=== PATIENT | female | born 1975 | race Caucasian/White ===

== ENCOUNTER → 2017-01-16 | Outpatient (CLI) | payer BC ==
[2017-01-16 10:04] LABS: Basophils # (auto) 0 uL; Basophils % (auto) 0.3 % (0.0-2.0); Eosinophils # (auto) 0.3 uL; Eosinophils % (auto) 4.2 % (0.0-7.0); Hematocrit 39.5 % (36.0-46.0); Lymphocytes # (auto) 1.8 uL; Lymphocytes % (auto) 23.7 % (10.0-50.0); Mean Corpuscular Hemoglobin 27.7 pg (28.0-32.0); Mean Corpuscular Volume 84.1 fL (80.0-100.0); Mean Platelet Volume 9.2 fL (7.4-10.4); Monocytes # (auto) 0.6 uL; Monocytes % (auto) 7.2 % (0.0-12.0); Neutrophils % (auto) 64.6 % (37.0-80.0); Platelet Count (auto) 263 10^3/uL (140-450); Red Cell Distribution Width 14.1 % (11.6-16.0); White Blood Cell 7.7 10^3/uL (4.4-10.8)
[2017-01-16 10:12] LABS: Urine Bilirubin Negative (Negative); Urine Blood TRACE /uL (Negative); Urine Color Yellow (Yellow); Urine Glucose Normal (Normal); Urine Ketone Negative (Negative); Urine Mucus FEW (None Seen); Urine Nitrite Negative (Negative); Urine RBC <1 /hpf (0 - 4); Urine Squamous Epithelial Cell FEW /hpf (<5); Urine Urobilinogen Normal (Negative)
[2017-01-16 11:17] LABS: Albumin 3.5 g/dL (3.4-5.0); BUN/Creatinine Ratio 12.7; Bilirubin, Total 0.5 mg/dL (0.2-1.0); Total Protein 7.5 g/dL (6.4-8.2)
== END | disposition home or self-care (01) ==
LOC: LAB 09:23
DX: Z68.37 Body mass index [BMI] 37.0-37.9, adult (principal); N92.1 Excessive and frequent menstruation with irregular cycle
CPT/HCPCS: 36415; 80053; 80061; 81001; 82670; 83001; 83002; 84146; 84443; 85025

== ENCOUNTER 2017-02-27 07:07 | Day surgery (SDC) | payer BC ==
[2017-02-26 09:59] LABS: Urine Bilirubin Negative (Negative); Urine Blood 2+ /uL (Negative); Urine Color Yellow (Yellow); Urine Glucose Normal (Normal); Urine Ketone Negative (Negative); Urine Nitrite Negative (Negative); Urine Urobilinogen Normal (Negative)
[2017-02-26 10:04] LABS: Basophils # (auto) 0 uL; Basophils % (auto) 0.5 % (0.0-2.0); Eosinophils # (auto) 0.3 uL; Eosinophils % (auto) 6.3 % (0.0-7.0); Hematocrit 35.5 % (36.0-46.0); Hemoglobin 11.9 g/dL (12.2-16.2); Lymphocytes # (auto) 1.3 uL; Lymphocytes % (auto) 27.4 % (10.0-50.0); Mean Corpuscular Hemoglobin 27.9 pg (28.0-32.0); Mean Corpuscular Hgb Conc. 33.4 g/dL (32.0-36.0); Mean Corpuscular Volume 83.6 fL (80.0-100.0); Mean Platelet Volume 9.7 fL (7.4-10.4); Monocytes # (auto) 0.4 uL; Neutrophils # (auto) 2.7 uL; Neutrophils % (auto) 56.8 % (37.0-80.0); Platelet Count (auto) 182 10^3/uL (140-450); White Blood Cell 4.7 10^3/uL (4.4-10.8)
[2017-02-26 10:21] LABS: Albumin 3.9 g/dL (3.4-5.0); BUN/Creatinine Ratio 16.5; Calcium 8.5 mg/dL (8.5-10.1); Potassium 3.8 mmol/L (3.5-5.1)
[2017-02-26 10:23] LABS: INR 0.98 (0.9-1.15); Partial Thromboplastin Time 25.6 sec (22.64-33.71); Prothrombin Time 10.6 sec (9.37-12.3)
[2017-02-26 10:24] LABS: Bilirubin, Total 0.5 mg/dL (0.2-1.0); Total Protein 6.5 g/dL (6.4-8.2)
[~2017-02-27] VITALS: Ht 170.2 cm; Wt 112.0 kg
[2017-02-27] MEDS ORDERED: ceFAZolin 1GM/50ML D5W 50 ML IV ONE (07:26)
[2017-02-27] MEDS ORDERED: PROPOFOL 10 MG/ML 20 ML IV ONE (08:51)
[2017-02-27] MEDS ORDERED: fentaNYL CITRATE 100 MCG/2 ML VL ONE (08:51)
[2017-02-27] MEDS ORDERED: MIDAZOLAM HCL 1MG/1ML-2 ML VIAL ONE (08:51)
[2017-02-27] MEDS ORDERED: LACTATED RINGER'S 1,000 ML IV SCH (09:56)
[2017-02-27] MEDS ORDERED: ONDANSETRON HCL 4 MG/2 ML VIAL IV PRN (10:00)
[2017-02-27] MEDS ORDERED: ONDANSETRON HCL 4 MG/2 ML VIAL IV ONE (10:15)
[2017-02-27] MEDS ORDERED: hydrALAZINE HCL 20 MG/ML VL IV PRN (10:15)
[2017-02-27] MEDS ORDERED: HYDROmorphone HCL 2 MG/ML VL IV PRN (10:15)
[2017-02-27] MEDS ORDERED: ePHEDrine SULFATE 50 MG/ML AMP IV PRN (10:15)
[2017-02-27 11:00] VITALS: BP 133/78
== END 2017-02-27 11:00 | disposition home or self-care (01) ==
LOC: SUR 07:07
PROVIDERS: ATTEND Specialist
DX: N92.1 Excessive and frequent menstruation with irregular cycle (principal); N94.6 Dysmenorrhea, unspecified; Z98.51 Tubal ligation status; Z90.710 Acquired absence of both cervix and uterus; D25.0 Submucous leiomyoma of uterus; E66.9 Obesity, unspecified
CPT/HCPCS: 36415; 58558; 80053; 81003; 84702; 85025; 85610; 85730; 86850; 86900; 86901; 88305; J0690; J2250; J2704; J3010

== ENCOUNTER → 2018-02-12 | Outpatient (CLI) | payer BC ==
[2018-02-12 10:14] LABS: Basophils # (auto) 0 uL; Basophils % (auto) 0.7 % (0.0-2.0); Eosinophils # (auto) 0.2 uL; Eosinophils % (auto) 2.8 % (0.0-7.0); Hematocrit 40.4 % (36.0-46.0); Hemoglobin 13.5 g/dL (12.2-16.2); Lymphocytes # (auto) 1.9 uL; Lymphocytes % (auto) 28.2 % (10.0-50.0); Mean Corpuscular Hgb Conc. 33.4 g/dL (32.0-36.0); Mean Corpuscular Volume 86.8 fL (80.0-100.0); Monocytes # (auto) 0.6 uL; Monocytes % (auto) 8.3 % (0.0-12.0); Platelet Count (auto) 209 10^3/uL (140-450); Red Blood Cells 4.66 10^6/uL (4.0-5.20); Red Cell Distribution Width 13.3 % (11.8-14.3); White Blood Cell 6.7 10^3/uL (4.4-10.8)
[2018-02-12 10:15] LABS: Urine Bacteria NONE SEEN /hpf (None Seen); Urine Blood Negative /uL (Negative); Urine Mucus FEW (None Seen); Urine Specific Gravity 1.025 (1.001-1.035); Urine WBC 2 /hpf (0 - 5)
[2018-02-12 10:52] LABS: Albumin 3.9 g/dL (3.4-5.0); BUN/Creatinine Ratio 15.9; Bilirubin, Total 0.5 mg/dL (0.2-1.0); Calcium 8.8 mg/dL (8.5-10.1); Potassium 4.2 mmol/L (3.5-5.1); Total Protein 7.5 g/dL (6.4-8.2)
== END | disposition home or self-care (01) ==
LOC: LAB 08:30
PROVIDERS: ATTEND Physician Assistant
DX: N92.1 Excessive and frequent menstruation with irregular cycle (principal); J30.2 Other seasonal allergic rhinitis; R00.2 Palpitations; Z83.3 Family history of diabetes mellitus; Z82.49 Family history of ischemic heart disease and other diseases of the circulatory system
CPT/HCPCS: 36415; 80053; 80061; 81001; 83036; 85025

== ENCOUNTER → 2018-04-16 | Outpatient (CLI) | payer BC ==
[2018-04-16 09:21] LABS: Free T4 (Free Thyroxine) 1.08 ng/dL (0.89-1.76); T3 Total 1.19 ng/mL (0.60-1.81)
== END | disposition home or self-care (01) ==
LOC: LAB 08:28
PROVIDERS: ATTEND Physician Assistant
DX: R63.5 Abnormal weight gain (principal)
CPT/HCPCS: 36415; 84439; 84443; 84480

== ENCOUNTER → 2019-04-12 | Outpatient (CLI) | payer BC ==
[2019-04-12 08:04] LABS: Basophils # (auto) 0 uL; Basophils % (auto) 0.7 % (0.0-2.0); Eosinophils # (auto) 0.3 uL; Hematocrit 39.6 % (36.0-46.0); Hemoglobin 13.5 g/dL (12.2-16.2); Lymphocytes # (auto) 1.7 uL; Lymphocytes % (auto) 27.8 % (10.0-50.0); Mean Corpuscular Hemoglobin 29.4 pg (28.0-32.0); Mean Corpuscular Hgb Conc. 34.2 g/dL (32.0-36.0); Mean Corpuscular Volume 85.8 fL (80.0-100.0); Monocytes # (auto) 0.5 uL; Monocytes % (auto) 8.1 % (0.0-12.0); Neutrophils # (auto) 3.7 uL; Neutrophils % (auto) 59.4 % (37.0-80.0); Platelet Count (auto) 193 10^3/uL (140-450); Red Blood Cells 4.61 10^6/uL (4.0-5.20); Red Cell Distribution Width 12.9 % (11.8-14.3); White Blood Cell 6.3 10^3/uL (4.4-10.8)
[2019-04-12 08:55] LABS: Albumin 3.8 g/dL (3.4-5.0); Potassium 3.4 mmol/L (3.5-5.1)
[2019-04-12 09:04] LABS: BUN/Creatinine Ratio 18.9; Bilirubin, Total 0.5 mg/dL (0.2-1.0); Calcium 9.1 mg/dL (8.5-10.1)
== END | disposition home or self-care (01) ==
LOC: LAB 07:04
PROVIDERS: ATTEND Physician Assistant
DX: Z00.00 Encounter for general adult medical examination without abnormal findings (principal); N92.1 Excessive and frequent menstruation with irregular cycle; Z82.49 Family history of ischemic heart disease and other diseases of the circulatory system; Z83.3 Family history of diabetes mellitus
CPT/HCPCS: 36415; 80053; 80061; 83036; 85025

== ENCOUNTER → 2020-06-01 | Outpatient (CLI) | payer OTHER | END | disposition home or self-care (01) | LOC: LAB 10:20 | PROVIDERS: ATTEND Nurse Practitioner Family | DX: Z03.818 Encounter for observation for suspected exposure to other biological agents ruled out (principal) ==

== ENCOUNTER → 2020-07-10 | Outpatient (CLI) | payer BC | END | disposition home or self-care (01) | LOC: LAB 09:26 | PROVIDERS: ATTEND Physician Assistant | DX: U07.1 COVID-19 (principal) | CPT/HCPCS: 87086; C9803; U0003 ==

== ENCOUNTER → 2020-08-16 | Outpatient (CLI) | payer BC ==
[2020-08-16 07:51] LABS: Basophils # (auto) 0 10 ^3/uL (0-0.2); Basophils % (auto) 0.8 % (0.0-2.0); Eosinophils # (auto) 0.2 10 ^3/uL (0-0.8); Eosinophils % (auto) 2.8 % (0.0-7.0); Hematocrit 40.6 % (36.0-46.0); Hemoglobin 13.8 g/dL (12.2-16.2); Lymphocytes # (auto) 1.7 10 ^3/uL (0.4-5.4); Lymphocytes % (auto) 28.2 % (10.0-50.0); Mean Corpuscular Hemoglobin 28.8 pg (28.0-32.0); Mean Corpuscular Hgb Conc. 34.1 g/dL (32.0-36.0); Mean Corpuscular Volume 84.4 fL (80.0-100.0); Monocytes # (auto) 0.5 10 ^3/uL (0-1.3); Monocytes % (auto) 8.4 % (0.0-12.0); Neutrophils # (auto) 3.6 10 ^3/uL (1.6-8.6); Neutrophils % (auto) 59.8 % (37.0-80.0); Platelet Count (auto) 232 10^3/uL (140-450); Red Blood Cells 4.81 10^6/uL (4.0-5.20)
[2020-08-16 08:21] LABS: Potassium 3.8 mmol/L (3.5-5.1)
[2020-08-16 08:29] LABS: Albumin 3.8 g/dL (3.4-5.0); BUN/Creatinine Ratio 17.1; Bilirubin, Total 0.6 mg/dL (0.2-1.0); Calcium 9.4 mg/dL (8.5-10.1); Total Protein 7.8 g/dL (6.4-8.2)
== END | disposition home or self-care (01) ==
LOC: LAB 07:27
PROVIDERS: ATTEND Physician Assistant
DX: E66.3 Overweight (principal); N92.1 Excessive and frequent menstruation with irregular cycle; R00.2 Palpitations; Z82.49 Family history of ischemic heart disease and other diseases of the circulatory system
CPT/HCPCS: 36415; 80053; 80061; 83036; 84443; 85025

== ENCOUNTER → 2022-01-09 | Outpatient (CLI) | payer BC ==
[2022-01-09 08:46] LABS: Basophils # (auto) 0.1 10 ^3/uL (0-0.2); Basophils % (auto) 1.3 % (0.0-2.0); Eosinophils # (auto) 0.2 10 ^3/uL (0-0.8); Eosinophils % (auto) 2.4 % (0.0-7.0); Hematocrit 41.2 % (36.0-46.0); Hemoglobin 14.4 g/dL (12.2-16.2); Lymphocytes # (auto) 2.5 10 ^3/uL (0.4-5.4); Mean Corpuscular Hemoglobin 29.3 pg (28.0-32.0); Mean Corpuscular Volume 83.8 fL (80.0-100.0); Monocytes # (auto) 0.6 10 ^3/uL (0-1.3); Monocytes % (auto) 6.6 % (0.0-12.0); Neutrophils # (auto) 5.6 10 ^3/uL (1.6-8.6); Neutrophils % (auto) 61.7 % (37.0-80.0); Nucleated Red Blood Cells % 0.2 %; Red Blood Cells 4.92 10^6/uL (4.0-5.20); Red Cell Distribution Width 13.6 % (11.8-14.3); White Blood Cell 9.1 10^3/uL (4.4-10.8)
[2022-01-09 11:04] LABS: Albumin 3.7 g/dL (3.4-5.0)
[2022-01-09 11:07] LABS: Free T4 (Free Thyroxine) 1.08 ng/dL (0.89-1.76)
[2022-01-09 11:12] LABS: BUN/Creatinine Ratio 17.8; Bilirubin, Total 0.6 mg/dL (0.2-1.0); Calcium 9.6 mg/dL (8.5-10.1); Total Protein 7.8 g/dL (6.4-8.2)
[2022-01-09 11:27] LABS: Potassium 4.6 mmol/L (3.5-5.1)
== END | disposition home or self-care (01) ==
LOC: LAB 08:23
PROVIDERS: ATTEND Nurse Practitioner Family
DX: E78.00 Pure hypercholesterolemia, unspecified (principal); E66.9 Obesity, unspecified
CPT/HCPCS: 36415; 80053; 80061; 82672; 83525; 84144; 84439; 84443; 85025

== ENCOUNTER → 2023-02-11 | Outpatient (CLI) | payer BC ==
[2023-02-11 07:28] LABS: Basophils # (auto) 0 10 ^3/uL (0-0.2); Basophils % (auto) 0.7 % (0.0-2.0); Eosinophils # (auto) 0.3 10 ^3/uL (0-0.8); Eosinophils % (auto) 4.1 % (0.0-7.0); Hematocrit 38.1 % (36.0-46.0); Hemoglobin 13.1 g/dL (12.2-16.2); Lymphocytes # (auto) 1.9 10 ^3/uL (0.4-5.4); Lymphocytes % (auto) 29.5 % (10.0-50.0); Mean Corpuscular Hemoglobin 29.1 pg (28.0-32.0); Mean Corpuscular Hgb Conc. 34.4 g/dL (32.0-36.0); Mean Corpuscular Volume 84.6 fL (80.0-100.0); Monocytes # (auto) 0.5 10 ^3/uL (0-1.3); Monocytes % (auto) 8.1 % (0.0-12.0); Neutrophils # (auto) 3.7 10 ^3/uL (1.6-8.6); Neutrophils % (auto) 57.6 % (37.0-80.0); Nucleated Red Blood Cells % 0.1 %; Red Cell Distribution Width 13.3 % (11.8-14.3); White Blood Cell 6.5 10^3/uL (4.4-10.8)
[2023-02-11 07:58] LABS: Albumin 3.5 g/dL (3.4-5.0); Calcium 9.2 mg/dL (8.5-10.1); Potassium 3.7 mmol/L (3.5-5.1)
[2023-02-11 08:01] LABS: BUN/Creatinine Ratio 14.8 (10.0-20.0); Bilirubin, Total 0.6 mg/dL (0.2-1.0); Total Protein 6.9 g/dL (6.4-8.2)
== END | disposition home or self-care (01) ==
LOC: LAB 06:59
PROVIDERS: ATTEND Nurse Practitioner Family
DX: R00.2 Palpitations (principal); E66.3 Overweight
CPT/HCPCS: 36415; 80053; 80061; 82306; 84439; 84443; 85025

== ENCOUNTER → 2024-07-14 | Outpatient (CLI) | payer BC ==
[2024-07-14 08:49] LABS: Basophils # (auto) 0.1 10 ^3/uL (0-0.2); Basophils % (auto) 0.8 % (0.0-2.0); Eosinophils # (auto) 0.1 10 ^3/uL (0-0.8); Eosinophils % (auto) 1.9 % (0.0-7.0); Hematocrit 38.5 % (36.0-46.0); Hemoglobin 13.4 g/dL (12.2-16.2); Lymphocytes % (auto) 32.1 % (10.0-50.0); Mean Corpuscular Hemoglobin 29.9 pg (28.0-32.0); Mean Corpuscular Hgb Conc. 34.8 g/dL (32.0-36.0); Mean Corpuscular Volume 85.7 fL (80.0-100.0); Monocytes # (auto) 0.5 10 ^3/uL (0-1.3); Monocytes % (auto) 8.4 % (0.0-12.0); Neutrophils # (auto) 3.5 10 ^3/uL (1.6-8.6); Neutrophils % (auto) 56.8 % (37.0-80.0); Nucleated Red Blood Cells % 0.1 %; Platelet Count (auto) 200 10^3/uL (140-450); Red Blood Cells 4.49 10^6/uL (4.0-5.20); Red Cell Distribution Width 13.4 % (11.8-14.3); White Blood Cell 6.1 10^3/uL (4.4-10.8)
[2024-07-14 09:57] LABS: Alanine Aminotransferase 16 U/L (7-40); Albumin 4.2 g/dL (3.2-4.8); Alkaline Phosphatase 52 U/L (46-116); Aspartate Aminotransferase 13 U/L (13-40); BUN/Creatinine Ratio 11.2 (10.0-20.0); Bilirubin, Total 0.8 mg/dL (0.2-1.0); Blood Urea Nitrogen 10 mg/dL (9-23); Calcium 9.6 mg/dL (8.7-10.4); Chloride 107 mmol/L (98-107); Cholesterol 164 mg/dL (< 200); Glucose 88 mg/dL (74-106); HDL Cholesterol 58 mg/dL (40-59); LDL Cholesterol 97 mg/dL (< 100); Sodium 141 mmol/L (136-145); Total Protein 6.8 g/dL (5.7-8.2); Triglycerides 39 mg/dL (< 150)
[2024-07-14 10:16] LABS: Anion Gap 8 (5-15); Carbon Dioxide 26 mmol/L (20-31)
== END | disposition home or self-care (01) ==
LOC: LAB 08:09
PROVIDERS: ATTEND Nurse Practitioner Family
DX: R00.2 Palpitations (principal); E66.9 Obesity, unspecified; Z00.00 Encounter for general adult medical examination without abnormal findings
CPT/HCPCS: 36415; 80053; 80061; 82306; 84443; 85025

== ENCOUNTER → 2024-09-21 | Outpatient (CLI) | payer BC | END | disposition home or self-care (01) | LOC: LAB 06:38 | PROVIDERS: ATTEND Nurse Practitioner Family | DX: N39.0 Urinary tract infection, site not specified (principal) | CPT/HCPCS: 87086 ==

== ENCOUNTER → 2024-12-19 | Outpatient (CLI) | payer BC | END | disposition home or self-care (01) | LOC: LAB 08:23 | PROVIDERS: ATTEND Obstetrics & Gynecology | DX: N93.9 Abnormal uterine and vaginal bleeding, unspecified (principal) ==

== ENCOUNTER 2025-01-06 07:42 | Inpatient (IN) | payer BC ==
[2025-01-04 11:56] LABS: Basophils # (auto) 0 10 ^3/uL (0-0.2); Basophils % (auto) 0.5 % (0.0-2.0); Eosinophils # (auto) 0.1 10 ^3/uL (0-0.8); Eosinophils % (auto) 0.9 % (0.0-7.0); Hematocrit 35.6 % (36.0-46.0); Hemoglobin 12.3 g/dL (12.2-16.2); Lymphocytes # (auto) 1.6 10 ^3/uL (0.4-5.4); Lymphocytes % (auto) 22.5 % (10.0-50.0); Mean Corpuscular Hgb Conc. 34.7 g/dL (32.0-36.0); Mean Corpuscular Volume 86.5 fL (80.0-100.0); Monocytes # (auto) 0.5 10 ^3/uL (0-1.3); Monocytes % (auto) 7.2 % (0.0-12.0); Neutrophils # (auto) 4.9 10 ^3/uL (1.6-8.6); Neutrophils % (auto) 68.9 % (37.0-80.0); Platelet Count (auto) 184 10^3/uL (140-450); Red Blood Cells 4.11 10^6/uL (4.0-5.20); Red Cell Distribution Width 13.2 % (11.8-14.3); White Blood Cell 7.1 10^3/uL (4.4-10.8)
[2025-01-04 12:04] LABS: Urine Bacteria MOD /hpf (None Seen); Urine Blood Negative /uL (Negative); Urine Clarity Turbid (Clear); Urine Color Yellow (Yellow); Urine Mucus FEW (None Seen); Urine Protein, UAD TRACE (Negative); Urine Specific Gravity 1.029 (1.001-1.035); Urine Squamous Epithelial Cell MOD /hpf (<5); Urine Urobilinogen Normal (Negative); Urine WBC 4 /HPF (0-5)
[2025-01-04 12:12] LABS: INR 1.05 (0.9-1.15); Partial Thromboplastin Time 26.8 SEC (24.5-34.5); Prothrombin Time 11.1 sec (9.3-11.8)
[2025-01-04 12:25] LABS: Alanine Aminotransferase 16 U/L (7-40); Alkaline Phosphatase 52 U/L (46-116); Anion Gap 5 (5-15); Calcium 9.6 mg/dL (8.7-10.4); Carbon Dioxide 27 mmol/L (20-31); Potassium 3.9 mmol/L (3.5-5.1); Sodium 140 mmol/L (136-145)
[2025-01-04 12:26] LABS: Albumin 4.3 g/dL (3.2-4.8); BUN/Creatinine Ratio 14.8 (10.0-20.0); Bilirubin, Total 0.7 mg/dL (0.2-1.0); Blood Urea Nitrogen 13 mg/dL (9-23)
[2025-01-04 12:31] LABS: Aspartate Aminotransferase 12 U/L (13-40); Chloride 108 mmol/L (98-107); Glucose 108 mg/dL (74-106)
[~2025-01-06] VITALS: Ht 170.2 cm; Wt 85.1 kg
[~2025-01-06 07:42] MED LIST: MAGN400T40 PO; TRAZ-227 PO
[2025-01-06] MEDS ORDERED: PROPOFOL 10 MG/ML 20 ML IV ONE (10:06)
[2025-01-06] MEDS ORDERED: LIDOCAINE HCL 100 MG/5ML (2%) SYRG INJ IV ONE (10:06)
[2025-01-06] MEDS ORDERED: ROCURONIUM 10MG/ML 10ML VIAL IV ONE ×2 (10:07→12:00)
[2025-01-06] MEDS ORDERED: ESMOLOL HCL 10 ML IV ONE (10:07)
[2025-01-06] MEDS ORDERED: hydrALAZINE HCL 20 MG/ML VL IV PRN ×2 (10:15→14:15)
[2025-01-06] MEDS ORDERED: ePHEDrine SULFATE 50 MG/ML AMP IV PRN ×2 (10:15→14:15)
[2025-01-06] MEDS ORDERED: fentaNYL CITRATE 100 MCG/2 ML VL IV PRN ×2 (10:15→14:15)
[2025-01-06] MEDS ORDERED: DexAMETHasone SOD PHOS 10MG/1ML VIAL INJ ONE ×3 (10:31→13:41)
[2025-01-06] MEDS ORDERED: KETAMINE 50mg/ML 10ml Vial 10 ML ONE (10:31)
[2025-01-06] MEDS ORDERED: ONDANSETRON HCL 4 MG/2 ML VIAL ONE ×2 (10:31→12:08)
[2025-01-06] MEDS: VASOPRESSIN 20 UNIT/ML ONE (10:55)
[2025-01-06] MEDS ORDERED: fentaNYL CITRATE 100 MCG/2 ML VL ONE (11:20)
[2025-01-06] MEDS ORDERED: SUGAMMADEX 200mg/2ml Vial (100MG/ML) IV ONE (13:36)
[2025-01-06] MEDS: LIDOCAINE W/ EPINEPHRINE 1% 20ML VIAL ONE (13:45)
[2025-01-06 14:03] VITALS: PULSE 85; RESP 16; O2SAT 100
--- NOTE | 2025-01-06 14:11 | DVHPN2 ---
Visit Coding OBGYN Date of Service: Jan 06, 2025 Billing Provider: ANANDA JAMES DO CHARGE LOADER Common Visit Codes: [id number] INP/OBS CARE (HIGH) CHARGE LOADER Procedure Codes: [id number]. SURG: W/VAG HYST (LAVH, Bilateral Salpingectomy ,Cystoscopy), 37904-YPX.SURG:W/REM ADNEXAL STRUCT ANANDA JAMES DO Jan 06, 2025 14:11
--- NOTE | 2025-01-06 14:14 | DVHHP2 ---
DUMPSTER OPERATOR CC & HPI Date Date of Admission: Jan 06, 2025 Allergies: Coded Allergies: NO KNOWN ALLERGIES (Unverified , 08/17/23) Home Meds Reported Medications Magnesium Oxide (MAGNESIUM OXIDE) 400 Mg Tab, 1 TAB PO HS, #30 TAB 5 Refills 01/04/25 Trazodone Hcl (Trazodone Hcl) 50 Mg Tab, 50 MG PO HS, MG 01/04/25 Current Medications Current Medications Medications (Trade) Dose Ordered Sig/Carlene Route PRN Reason Start Time Stop Time Status Last Admin Hydralazine HCl (Apresoline Injection) 2.5 mg Q20M PRN IV SBP>150 01/06/25 10:15 01/06/25 11:16 DC Ephedrine Sulfate (ePHEDrine SULFATE) 10 mg Q10M PRN IV SBP LESS THAN 90 01/06/25 10:15 01/06/25 10:56 DC Fentanyl Citrate 25 mcg Q5M PRN IV BREAKTHROUGH PAIN (7-10) 01/06/25 10:15 01/06/25 10:26 DC Hydromorphone HCl (Dilaudid Injection) 0.25 mg Q10M PRN IV MODERATE PAIN (4-6 PAIN SCALE) 01/06/25 10:15 01/06/25 10:46 DC Physical Exam Physical Exam Vitals: Vital Signs Date Time Temp Pulse Resp B/P (MAP) Pulse Ox O2 Delivery O2 Flow Rate FiO2 01/06/25 10:19 Mechanical Ventilator 01/06/25 08:02 97.3 78 100 113/66 (82) 20 97.3 Assessment and Plan Plan Assessment and Plan: No changes to H&P dictated 01/02/25 Visit Coding OBGYN Date of Service: Jan 06, 2025 Billing Provider: ANANDA JAMES DO CAREGIVER ASSISTED LIVING Common Visit Codes: [id number] OBS CARE (HIGH) ANANDA JAMES DO Jan 06, 2025 14:14
[2025-01-06] MEDS ORDERED: HYDROmorphone HCL 2 MG/ML VL/or syr IV PRN (14:15)
[2025-01-06] MEDS ORDERED: ONDANSETRON HCL 4 MG/2 ML VIAL IV PRN (14:15)
[2025-01-06] MEDS: ACETAMINOPHEN IV 1000 MG/100ML (10MG/ML) IV ONE (14:27)
--- NOTE | 2025-01-06 14:46 | DVHOP ---
DATE OF SURGERY: 01/06/2025 PREOPERATIVE DIAGNOSES: * Menorrhagia. * Pelvic pain. * Failed prior endometrial ablation. FINAL DIAGNOSES: * Menorrhagia. * Pelvic pain. * Failed prior endometrial ablation. * Endometriosis. * Possible adenomyosis. SURGEON: Jonathan Cherry DO SIGNAL MAINTAINER: Ankita hernández. PROCEDURES PERFORMED: * Laparoscopic-assisted total vaginal hysterectomy with bilateral salpingectomy. * Diagnostic cystoscopy. DESCRIPTION OF FINDINGS: An enlarged globular uterus 12-week size. No myomas noted. Normal bilateral fallopian tubes and ovaries. The ovaries were conserved per patient request. There was infiltrating endometriosis in the posterior cul-de-sac obliterating partially the cul-de-sac with endometriotic nodules of the uterosacral ligaments as well. The appendix, gallbladder, other organs were visualized and appeared normal. TECHNICAL PROCEDURE: After informed consent was obtained, the patient was taken to the operating room where she underwent smooth induction with general anesthesia. She was placed in dorsal lithotomy position in Zac stirrups. The vagina, perineum, abdomen were thoroughly prepped and the patient sterilely draped in usual fashion. A pelvic exam was then performed under anesthesia with the above-noted findings. A transurethral hamm catheter was placed. A weighted speculum was placed into the patient's vagina. The anterior and posterior lips of the cervix were grasped with single-tooth tenacula. The vaginal mucosa was injected with a dilute solution of vasopressin until blanching of the vaginal mucosa was noted. The cervix was incised circumferentially sharply with the scalpel. The cervicovesical fascia was dissected sharply and bluntly and sharp entry into the anterior cul-de-sac was performed in atraumatic fashion. A right-angle retractor was placed into the anterior cul-de-sac. Entry into the posterior cul-de-sac, however, could not be achieved despite two attempts. There was nodularity and obliteration of the cul-de-sac. There was tunneling in between the vaginal epithelium and the peritoneum. Therefore, decision was made to convert to laparoscopy. At this point, a BrainBotare uterine manipulator with a colpotimizer cup was placed transcervically. The balloon inflated. Attention was then placed to the abdomen where a 5 mm incision was made at the base of the umbilicus. The Veress needle was introduced in usual fashion. Intraperitoneal placement was confirmed with the hanging water drop test. Carbon dioxide gas was infused and pneumoperitoneum was obtained. Next, three 5 mm Optiview trocars were placed under direct visualization. A 5 mm trocar was placed at the umbilicus. Following this, a 5 mm trocar was placed to the left of midline and a 5 mm trocar was placed suprapubically. Next, the posterior vagina was inspected and there was endometriosis of the cul-de-sac discovered, as described above. The hysterectomy proceeded by dividing the round ligaments bilaterally with LigaSure. Next, bilateral uteroovarian ligaments were divided with LigaSure with good hemostasis noted. The anterior and posterior reflections of the broad ligament were dissected with the LigaSure device, obtaining good hemostasis. The uterine arteries were skeletonized bilaterally, totally desiccated and transected with the LigaSure device. The ureters were identified and they were inferior to the planes of dissection. Next, the uterosacral ligaments were taken with the LigaSure device bilaterally. The adhesions of in the posterior cul-de-sac were sharply and bluntly lysed creating a proper plane for dissection. The posterior vaginal cuff was identified via the posterior cup of the VCare manipulator. Using a monopolar hook, an incision was made in the posterior cul-de-sac and this incision was carried circumferentially. Next, we proceeded vaginally again. The weighted speculum was placed into the patient's vagina. A right-angle retractor was placed into the anterior cul-de-sac. The cervix was grasped with single-tooth tenacula. The uterine fundus was then inverted and the attachments of the Mackenrodt's ligaments were clamped, transected, and suture ligated bilaterally. The uterus was delivered. At this point, it was noted that there was tunneling between the posterior vaginal epithelium and the peritoneum. This was sewn using 2-0 Vicryl with good hemostasis obtained. Next, the vagina was closed in vertical fashion using #1 Vicryl in continuing running locking fashion with two sutures meeting in the midline. The vagina was attached to the ipsilateral cardinal and uterosacral ligaments. Hemostasis was confirmed. Next, we proceeded again to perform a diagnostic laparoscopy. All vascular pedicles were inspected under low pressure and there was no bleeding noted. The left and right fallopian tubes were found. They were grasped with a Nixon clamp and dissected across the mesosalpinx bilaterally. Both fallopian tubes were removed. They were placed in a 5 mm Endo Catch bag and removed through the suprapubic port in the bag. Next, the abdomen and pelvis was thoroughly irrigated as described above. Hemostasis was confirmed. I put FloSeal over the vaginal cuff for added hemostasis. An intraoperative consult with Dr. Diaz from general surgery was obtained to inspect the rectum. There was no evidence on physical exam or on laparoscopy of any injury to the rectum or rectosigmoid colon. He performed a pressure test. There were no bubbles noted. The rectum appeared intact. At this point, all instrumentation was removed from the patient's abdomen. Before this, the carbon dioxide gas was removed and the pneumoperitoneum relieved. All instruments were removed under direct visualization. I then proceeded to perform a diagnostic cystoscopy after removing the Hamm catheter. A 70-degree cystoscope was used. Normal saline was used as a distention media. Bilateral ureteral orifices were noted with ureteral jets noted bilaterally. The trigone and dome of the bladder was inspected and appeared within normal limits. The cystoscope was removed. A clean Hamm catheter was reintroduced. Next, a vaginal Kerlix pack was placed soaked in Premarin vaginal cream. The abdominal skin incisions were closed with 3-0 Monocryl in subcuticular fashion. A thin layer of Dermabond placed. Lidocaine 1% with epinephrine was injected across three incisions, approximately 20 mL were used. At this point, the patient was taken out of lithotomy position. She was awakened and taken to recovery room in stable condition. INTRAOPERATIVE COMPLICATIONS: None. ESTIMATED BLOOD LOSS: 250 mL. POSTOPERATIVE CONDITION: Stable. SPECIMENS: Uterus and bilateral fallopian tubes. DO ANTONIO Chowdhury/LOI TID: [id number] RECEIPT: [id number] [facility] CENTERGagan
[2025-01-06] MEDS: HYDROmorphone HCL 2 MG/ML VL/or syr IV PRN ×2 (14:59→18:11)
[2025-01-06] MEDS: ONDANSETRON HCL 4 MG/2 ML VIAL IV ONE (15:11)
[2025-01-06 16:02] VITALS: BP 102/56; PULSE 90; RESP 17; TEMP 97.5; O2SAT 98
[2025-01-06 16:22] VITALS: PULSE 90; RESP 17; O2SAT 98
[2025-01-06 16:59] LABS: Basophils # (auto) 0 10 ^3/uL (0-0.2); Basophils % (auto) 0.1 % (0.0-2.0); Eosinophils # (auto) 0 10 ^3/uL (0-0.8); Hematocrit 33.4 % (36.0-46.0); Hemoglobin 11.5 g/dL (12.2-16.2); Lymphocytes # (auto) 0.4 10 ^3/uL (0.4-5.4); Mean Corpuscular Hemoglobin 29.7 pg (28.0-32.0); Mean Corpuscular Hgb Conc. 34.5 g/dL (32.0-36.0); Mean Corpuscular Volume 86.2 fL (80.0-100.0); Monocytes # (auto) 0.3 10 ^3/uL (0-1.3); Neutrophils # (auto) 13.8 10 ^3/uL (1.6-8.6); Neutrophils % (auto) 94.9 % (37.0-80.0); Platelet Count (auto) 157 10^3/uL (140-450); Red Blood Cells 3.87 10^6/uL (4.0-5.20); Red Cell Distribution Width 12.9 % (11.8-14.3); White Blood Cell 14.5 10^3/uL (4.4-10.8)
[2025-01-06 17:00] VITALS: BP 102/56; PULSE 90; RESP 17; TEMP 97.5; O2SAT 98
[2025-01-06 20:00] VITALS: PULSE 94; RESP 16; O2SAT 98
[2025-01-06 20:02] LABS: Basophils # (auto) 0 10 ^3/uL (0-0.2); Eosinophils # (auto) 0 10 ^3/uL (0-0.8); Hematocrit 32.7 % (36.0-46.0); Hemoglobin 11.4 g/dL (12.2-16.2); Lymphocytes # (auto) 0.5 10 ^3/uL (0.4-5.4); Mean Corpuscular Hgb Conc. 34.8 g/dL (32.0-36.0); Mean Corpuscular Volume 86.1 fL (80.0-100.0); Monocytes # (auto) 0.4 10 ^3/uL (0-1.3); Monocytes % (auto) 2.3 % (0.0-12.0); Neutrophils # (auto) 14.6 10 ^3/uL (1.6-8.6); Neutrophils % (auto) 94.7 % (37.0-80.0); Platelet Count (auto) 163 10^3/uL (140-450); Red Cell Distribution Width 13.3 % (11.8-14.3); White Blood Cell 15.5 10^3/uL (4.4-10.8)
[2025-01-06] MEDS: ceFAZolin 1GM/50ML 50 ML IV ONE (20:42)
[2025-01-06 21:00] VITALS: BP 103/57; PULSE 94; RESP 16; TEMP 98.1; O2SAT 98
[2025-01-07] VITALS (7 sets, daily range): BP systolic 95–112; BP diastolic 53–62; PULSE 82–92; RESP 16–20; TEMP 97.4–98.7; O2SAT 96–99
[2025-01-07] MEDS: IBUPROFEN 800 MG TAB PO PRN (00:29)
[2025-01-07] MEDS: LACTATED RINGER'S 1,000 ML IV SCH ×2 (06:00→11:26)
[2025-01-07 06:16] LABS: Basophils # (auto) 0 10 ^3/uL (0-0.2); Eosinophils # (auto) 0 10 ^3/uL (0-0.8); Hematocrit 28.5 % (36.0-46.0); Lymphocytes # (auto) 1.4 10 ^3/uL (0.4-5.4); Lymphocytes % (auto) 6.9 % (10.0-50.0); Mean Corpuscular Hemoglobin 30.4 pg (28.0-32.0); Mean Corpuscular Hgb Conc. 35.2 g/dL (32.0-36.0); Mean Corpuscular Volume 86.3 fL (80.0-100.0); Monocytes # (auto) 1.9 10 ^3/uL (0-1.3); Monocytes % (auto) 9.4 % (0.0-12.0); Neutrophils # (auto) 16.6 10 ^3/uL (1.6-8.6); Neutrophils % (auto) 83.7 % (37.0-80.0); Platelet Count (auto) 159 10^3/uL (140-450); Red Cell Distribution Width 13.4 % (11.8-14.3); White Blood Cell 19.9 10^3/uL (4.4-10.8)
[2025-01-07 06:36] LABS: Alanine Aminotransferase 10 U/L (7-40); Albumin 3.3 g/dL (3.2-4.8); Alkaline Phosphatase 42 U/L (46-116); Anion Gap 6 (5-15); Aspartate Aminotransferase 11 U/L (13-40); BUN/Creatinine Ratio 11.4 (10.0-20.0); Bilirubin, Total 0.5 mg/dL (0.2-1.0); Blood Urea Nitrogen 8 mg/dL (9-23); Calcium 9.2 mg/dL (8.7-10.4); Carbon Dioxide 26 mmol/L (20-31); Chloride 109 mmol/L (98-107); Glucose 97 mg/dL (74-106); Sodium 141 mmol/L (136-145); Total Protein 5.5 g/dL (5.7-8.2)
[2025-01-07] MEDS: ROPIVACAINE 0.5% (5MG/ML) 20ML AMPULE IJ ONE (07:44)
[2025-01-07] MEDS: METOCLOPRAMIDE HCL 5MG/ml INJ 2ml VIAL IV ONE ×2 (07:44→07:45)
[2025-01-07] MEDS: BUPIVACAINE 0.25% INJ 50ML VIAL ONE (07:44)
[2025-01-07] MEDS: ceFAZolin 2 GM/D5W100ml 100 ML IV ONE (07:44)
[2025-01-07] MEDS: CONJ ESTROGENS 0.625MG/GM VAG CRM 30GM PV ONE (07:44)
[2025-01-07] MEDS: ACETAMINOPHEN IV 100 ML IV ONE (07:44)
[2025-01-07] MEDS: METHYLENE BLUE 0.5% 5MG/ML 10ml AMP IV ONE (07:44)
[2025-01-07] MEDS: ONDANSETRON HCL 4 MG/2 ML VIAL IV ONE (07:45)
--- NOTE | 2025-01-07 08:18 | DVHPN2 ---
Subjective Progress Notes Subjective POD# 1 s/p LAVH + BS, Cystoscopy for pelvic pain, and menorrhagia S: Pain is moderate. Controlled w/ meds. Denies any fever/chills. no N/V. Patient is hungry. Objective PHYSICAL EXAM Physical Exam: Alert, NAD CV RRR Pulm CTAB ABD Soft, NT, Non distended Ext No cyanosis or edema, neg lennox sign vagina: PACKING REMOVED BY ME, no bleeding noted. Vital Signs and I&O Vital Signs Date Time Temp Pulse Resp B/P (MAP) Pulse Ox O2 Delivery O2 Flow Rate FiO2 01/07/25 05:00 98.1 82 20 104/54 (71) 96 98.1 01/06/25 20:00 Room Air* 0 21 Intake and Output 01/07/25 06:59 Intake Total 1450 ml Output Total 0 ml Balance 1450 ml Intake Oral 800 ml IV Total 650 ml Output Urine Total 0 ml Lab results Laboratory Tests Test 01/04/25 11:36 01/06/25 16:30 01/06/25 19:40 01/07/25 05:34 Range/Units White Blood Count 7.1 14.5 #H 15.5 H 19.9 #H 4.4-10.8 10^3/uL Red Blood Count 4.11 3.87 L 3.80 L 3.30 L 4.0-5.20 10^6/uL Hemoglobin 12.3 11.5 L 11.4 L 10.0 L 12.2-16.2 g/dL Hematocrit 35.6 L 33.4 L 32.7 L 28.5 #L 36.0-46.0 % Mean Corpuscular Volume 86.5 86.2 86.1 86.3 80.0-100.0 fL Mean Corpuscular Hemoglobin 30.0 29.7 30.0 30.4 28.0-32.0 pg Mean Corpuscular Hemoglobin Concent 34.7 34.5 34.8 35.2 32.0-36.0 g/dL Red Cell Distribution Width 13.2 12.9 13.3 13.4 11.8-14.3 % Platelet Count 184 157 163 159 140-450 10^3/uL Mean Platelet Volume 8.6 8.7 8.7 9.1 6.9-10.8 fL Neutrophils (%) (Auto) 68.9 94.9 H 94.7 H 83.7 H 37.0-80.0 % Lymphocytes (%) (Auto) 22.5 3.0 L 3.0 L 6.9 L 10.0-50.0 % Monocytes (%) (Auto) 7.2 2.0 2.3 9.4 0.0-12.0 % Eosinophils (%) (Auto) 0.9 0.0 0.0 0.0 0.0-7.0 % Basophils (%) (Auto) 0.5 0.1 0.0 0.0 0.0-2.0 % Neutrophils # (Auto) 4.9 13.8 H 14.6 H 16.6 H 1.6-8.6 10 ^3/uL Lymphocytes # (Auto) 1.6 0.4 0.5 1.4 0.4-5.4 10 ^3/uL Monocytes # (Auto) 0.5 0.3 0.4 1.9 H 0-1.3 10 ^3/uL Eosinophils # (Auto) 0.1 0 0 0 0-0.8 10 ^3/uL Basophils # (Auto) 0 0 0 0 0-0.2 10 ^3/uL Nucleated Red Blood Cells 0.0 0.0 0.0 0.0 % Prothrombin Time 11.1 9.3-11.8 sec Prothrombin Time INR 1.05 0.9-1.15 Activated Partial Thromboplast Time 26.8 24.5-34.5 SEC Urine Color Yellow Yellow Urine Clarity Turbid H Clear Urine pH 6.0 5.0-9.0 Urine Specific [place] 1.029 1.001-1.035 Urine Protein Trace H Negative Urine Ketones 1+ H Negative Urine Blood Negative Negative /uL Urine Nitrite Negative Negative Urine Bilirubin Negative Negative Urine Urobilinogen Normal Negative mg/dL Urine Leukocyte Esterase 2+ Negative /uL Urine RBC 2 0 - 4 /hpf Urine Microscopic WBC 4 0-5 /HPF Urine Squamous Epithelial Cells Mod <5 /hpf Urine Bacteria Mod H None Seen /hpf Urine Mucus Few None Seen Urine Glucose Normal Normal mg/dL Urine Test Negative Negative Sodium Level 140 141 136-145 mmol/L Potassium Level 3.9 4.0 3.5-5.1 mmol/L Chloride Level 108 H 109 H 98-107 mmol/L Carbon Dioxide Level 27 26 20-31 mmol/L Anion Gap 5 6 5-15 Blood Urea Nitrogen 13 8 L 9-23 mg/dL Creatinine 0.88 0.70 0.550-1.02 mg/dL Glomerular Filtration Rate Calc 82 107 >90 mL/min BUN/Creatinine Ratio 14.8 11.4 10.0-20.0 Serum Glucose 108 H 97 74-106 mg/dL Calcium Level 9.6 9.2 8.7-10.4 mg/dL Total Bilirubin 0.7 0.5 0.2-1.0 mg/dL Aspartate Amino Transferase (AST) 12 L 11 L 13-40 U/L Alanine Aminotransferase (ALT) 16 10 7-40 U/L Alkaline Phosphatase 52 42 L 46-116 U/L Total Protein 7.0 5.5 L 5.7-8.2 g/dL Albumin 4.3 3.3 3.2-4.8 g/dL Beta HCG, Quantitative 1.1 L 1.5-4.2 mIU/mL Assessment and Plan ASSESSMENT AND PLAN Assessment and Plan POD#1 s/p LAVH doing well Plan: Continue supportive care advance diet to regular Ambulate QID My orders: Orders - ANANDA JAMES DO Admit (01/06/25 14:03) To Pacu For Recovery (01/06/25 14:03) Lactated Ringer's (01/06/25 14:15) Ondansetron Hcl (Zofran) (01/06/25 14:15) Hydromorphone Injection (Dilaudid Inject (01/06/25 14:15) Sequential Compression Device (01/06/25 14:03) Oxygen By Nasal Cannula (01/06/25 14:03) D/C Beltran (01/06/25 14:03) Incentive Spirometry (01/06/25 14:03) Ibuprofen Tablet (Motrin Tablet) (01/06/25 14:15) Clear Liq Diet (01/06/25 Dinner) Abdominal Binder (01/06/25 14:03) Remove All Anal Packing (01/07/25 04:00) * Hospitalist Consult (01/06/25 ) Plan discussed with: Patient Visit Coding OBGYN Date of Service: Jan 07, 2025 Billing Provider: ANANDA JAMES DO SIGHT MOUNTER Common Visit Codes: [id number] INP/OBS CARE(HIGH) ANANDA JAMES DO Jan 07, 2025 08:18
[2025-01-07] MEDS ORDERED: HYDROcodone-ACET 7.5/325MG TAB PO PRN (08:30)
[2025-01-07] MEDS: SODIUM CHLORIDE 0.9% 500 ML IV ONE (08:45)
--- NOTE | 2025-01-07 09:19 | DVHINCON2 ---
Date Seen: Jan 07, 2025 Referring Physician ANANDA JAMES DO Reason for Consultation Medical And Pain Management History of Present Illness A 49-year-old female patient; with past medical history of menorrhagia and pelvic pain; who was admitted after laparoscopic assisted vaginal hysterectomy (LAVH), bilateral salpingectomy (BS), and cystoscopy on January 06, 2025 for pain management and treatment of complicated UTI. Past Medical History Past medical history as documented in history of present illness. Past Surgical History None Family History: Patient reports no known family medical history. Social History No alcohol/illicit drug/tobacco use Allergies: Coded Allergies: NO KNOWN ALLERGIES (Unverified , 08/17/23) Home Meds Active Scripts Hydrocodone-Acetaminophen (Hydrocodone Bitartrate/AC 5-325 mg) 1 Tab Tab, 1 TAB PO Q6HPRN PRN, #20 TAB Prov:ANANDA JAMES DO 01/07/25 Ibuprofen Micronized (Ibuprofen) 800 Mg Tab, 800 MG PO Q8HP PRN, #30 TAB Prov:ANANDA JAMES DO 01/07/25 Reported Medications Magnesium Oxide (MAGNESIUM OXIDE) 400 Mg Tab, 1 TAB PO HS, #30 TAB 5 Refills 01/04/25 Trazodone Hcl (Trazodone Hcl) 50 Mg Tab, 50 MG PO HS, MG 01/04/25 Current Medications Current Medications Medications (Trade) Dose Ordered Sig/Carlene Route PRN Reason Start Time Stop Time Status Last Admin Hydralazine HCl (Apresoline Injection) 2.5 mg Q20M PRN IV SBP>150 01/06/25 10:15 01/06/25 11:16 DC Ephedrine Sulfate (ePHEDrine SULFATE) 10 mg Q10M PRN IV SBP LESS THAN 90 01/06/25 10:15 01/06/25 10:56 DC Fentanyl Citrate 25 mcg Q5M PRN IV BREAKTHROUGH PAIN (7-10) 01/06/25 10:15 01/06/25 10:26 DC Hydromorphone HCl (Dilaudid Injection) 0.25 mg Q10M PRN IV MODERATE PAIN (4-6 PAIN SCALE) 01/06/25 10:15 01/06/25 10:46 DC 01/06/25 14:59 Lactated Ringer's 1,000 ml @ 75 mls/hr [id number] IV 01/06/25 14:15 01/07/25 08:45 DC 01/07/25 06:00 Ondansetron HCl (Zofran) 4 mg Q4HP PRN IV NAUSEA / VOMITING 01/06/25 14:15 Hydromorphone HCl (Dilaudid Injection) 1 mg Q2HP PRN IV SEVERE PAIN (7-10 PAIN SCALE) 01/06/25 14:15 01/07/25 04:29 Ibuprofen (Motrin Tablet) 800 mg Q8HP PRN PO MILD PAIN (1-3 PAIN SCALE) 01/06/25 14:15 01/07/25 00:29 Hydralazine HCl (Apresoline Injection) 5 mg Q10M PRN IV SBP>160 01/06/25 14:15 01/06/25 15:06 DC Ephedrine Sulfate (ePHEDrine SULFATE) 10 mg Q10M PRN IV SBP LESS THAN 90 01/06/25 14:15 01/06/25 14:56 DC Fentanyl Citrate 25 mcg Q5M PRN IV BREAKTHROUGH PAIN (7-10) 01/06/25 14:15 01/06/25 14:32 DC Hydromorphone HCl (Dilaudid Injection) 0.25 mg Q10M PRN IV MODERATE PAIN (4-6 PAIN SCALE) 01/06/25 14:15 01/06/25 14:46 DC Acetaminophen/ Hydrocodone Bitart ([place] 7.5/325MG Tab) 1 tab Q6HP PRN PO MODERATE PAIN (4-6 PAIN SCALE) 01/07/25 08:30 Lactated Ringer's 1,000 ml @ 125 mls/hr Q8H IV 01/07/25 11:00 Ceftriaxone Sodium 50 ml @ 100 mls/hr DAILY@09 IV 01/07/25 09:00 Review of Systems As documented in history of present illness Vital Signs Vital Signs Date Time Temp Pulse Resp B/P (MAP) Pulse Ox O2 Delivery O2 Flow Rate FiO2 01/07/25 08:40 98.1 89 16 95/53 (67) 99 98.1 01/06/25 20:00 Room Air* 0 21 Physical Exam General: Alert, oriented, not in distress HEENT: Atraumatic Respiratory: Good air entry bilateral with no wheezing/crackles Cardiovascular: RRR, normal S1 and S2, no murmurs; no edema; normal pulses Abdomen: Mild suprapubic tenderness; hyperactive bowel sounds; soft; Beltran's catheter in place Neurological: No neurological deficits Skin: Tattoos Labs/Diagnostic Data Labs Test 01/07/25 05:34 01/04/25 11:36 Range/Units White Blood Count 19.9 #H 4.4-10.8 10^3/uL Red Blood Count 3.30 L 4.0-5.20 10^6/uL Hemoglobin 10.0 L 12.2-16.2 g/dL Hematocrit 28.5 #L 36.0-46.0 % Mean Corpuscular Volume 86.3 80.0-100.0 fL Mean Corpuscular Hemoglobin 30.4 28.0-32.0 pg Mean Corpuscular Hemoglobin Concent 35.2 32.0-36.0 g/dL Red Cell Distribution Width 13.4 11.8-14.3 % Platelet Count 159 140-450 10^3/uL Mean Platelet Volume 9.1 6.9-10.8 fL Neutrophils (%) (Auto) 83.7 H 37.0-80.0 % Lymphocytes (%) (Auto) 6.9 L 10.0-50.0 % Monocytes (%) (Auto) 9.4 0.0-12.0 % Eosinophils (%) (Auto) 0.0 0.0-7.0 % Basophils (%) (Auto) 0.0 0.0-2.0 % Neutrophils # (Auto) 16.6 H 1.6-8.6 10 ^3/uL Lymphocytes # (Auto) 1.4 0.4-5.4 10 ^3/uL Monocytes # (Auto) 1.9 H 0-1.3 10 ^3/uL Eosinophils # (Auto) 0 0-0.8 10 ^3/uL Basophils # (Auto) 0 0-0.2 10 ^3/uL Nucleated Red Blood Cells 0.0 % Sodium Level 141 136-145 mmol/L Potassium Level 4.0 3.5-5.1 mmol/L Chloride Level 109 H 98-107 mmol/L Carbon Dioxide Level 26 20-31 mmol/L Anion Gap 6 5-15 Blood Urea Nitrogen 8 L 9-23 mg/dL Creatinine 0.70 0.550-1.02 mg/dL Glomerular Filtration Rate Calc 107 >90 mL/min BUN/Creatinine Ratio 11.4 10.0-20.0 Serum Glucose 97 74-106 mg/dL Calcium Level 9.2 8.7-10.4 mg/dL Total Bilirubin 0.5 0.2-1.0 mg/dL Aspartate Amino Transferase (AST) 11 L 13-40 U/L Alanine Aminotransferase (ALT) 10 7-40 U/L Alkaline Phosphatase 42 L 46-116 U/L Total Protein 5.5 L 5.7-8.2 g/dL Albumin 3.3 3.2-4.8 g/dL Prothrombin Time 11.1 9.3-11.8 sec Prothrombin Time INR 1.05 0.9-1.15 Activated Partial Thromboplast Time 26.8 24.5-34.5 SEC Urine Color Yellow Yellow Urine Clarity Turbid H Clear Urine pH 6.0 5.0-9.0 Urine Specific [place] 1.029 1.001-1.035 Urine Protein Trace H Negative Urine Ketones 1+ H Negative Urine Blood Negative Negative /uL Urine Nitrite Negative Negative Urine Bilirubin Negative Negative Urine Urobilinogen Normal Negative mg/dL Urine Leukocyte Esterase 2+ Negative /uL Urine RBC 2 0 - 4 /hpf Urine Microscopic WBC 4 0-5 /HPF Urine Squamous Epithelial Cells Mod <5 /hpf Urine Bacteria Mod H None Seen /hpf Urine Mucus Few None Seen Urine Glucose Normal Normal mg/dL Urine Test Negative Negative Beta HCG, Quantitative 1.1 L 1.5-4.2 mIU/mL Assessment A 49-year-old female patient; with past medical history of menorrhagia and pelvic pain; who was admitted after laparoscopic assisted vaginal hysterectomy (LAVH), bilateral salpingectomy (BS), and cystoscopy on January 06, 2025 for pain management and treatment of complicated UTI. #Fluid-responsive septic shock with leukocytosis and hypotension due to complicated UTI; receiving IV boluses; started on IV antibiotics; urine cultures sent; continue close monitoring #EVELIN in the setting of septic shock; most likely vasomotor nephropathy; receiving IV fluids; avoid nephrotoxic agents; continue close monitoring #Menorrhagia and pelvic pain s/p LAVH, BS, and cystoscopy on January 06, 2025; continue pain management as indicated; started on simethicone for building up of of gas; gynecology is following; continue close monitoring #Acute blood loss anemia; continue monitoring CBC; continue close monitoring #Obesity; counseled on the importance of adopting healthy lifestyle with diet and exercise in order to lose weight; continue monitoring Goals of care discussed with the patient for 20 minutes; full code 55 minutes of critical care time Late Entry. This medical document was created using an electronic medical record system with computerized dictation system. Although this document has been carefully reviewed, there might still be some phonetic and typographical errors. These areas are purely typographical due to imperfections of the software programs, and do not reflect any compromise in the patient's medical care. Plan discussed with: Patient, Other (Nurse) Date of Service: Jan 07, 2025 Billing Provider: SARAH KELLER MD Common Visit Codes: [id number] CARE 30-74 MIN (55 minutes) Secondary Visit Codes: [id number] CARE PLAN 30 MINUTES (20 minutes) Consultation Codes: [id number] CONSULT <80MIN SARAH KELLER MD Jan 07, 2025 09:19
[2025-01-07] MEDS: cefTRIAXone 1GM/50ML D5W 50 ML IV SCH (10:42)
[2025-01-07] MEDS: SIMETHICONE 80 MG CHEWABLE TABLET PO ONE (10:45)
[2025-01-07] MEDS: SIMETHICONE 80 MG CHEWABLE TABLET PO SCH (13:20)
[2025-01-07] MEDS ORDERED: HYDR-4902 PO (15:34)
[2025-01-07] MEDS ORDERED: IBUP-1455 PO (15:34)
[2025-01-08 00:42] LABS: Urine Bacteria FEW /hpf (None Seen); Urine Blood 3+ /uL (Negative); Urine Clarity Turbid (Clear); Urine Color Light-Orange (Yellow); Urine Hyaline Cast FEW /lpf (0 - 2); Urine Mucus FEW (None Seen); Urine Protein, UAD 1+ (Negative); Urine Squamous Epithelial Cell FEW /hpf (<5); Urine Urobilinogen Normal (Negative); Urine WBC 41 /HPF (0-5)
[2025-01-08 01:00] VITALS: BP 125/65; PULSE 92; RESP 19; TEMP 98.4; O2SAT 94
[2025-01-08 05:00] VITALS: BP 114/63; PULSE 91; RESP 19; TEMP 98; O2SAT 94
[2025-01-08 05:58] LABS: Basophils # (auto) 0 10 ^3/uL (0-0.2); Basophils % (auto) 0.2 % (0.0-2.0); Eosinophils # (auto) 0 10 ^3/uL (0-0.8); Eosinophils % (auto) 0.3 % (0.0-7.0); Hematocrit 26.8 % (36.0-46.0); Hemoglobin 9.2 g/dL (12.2-16.2); Lymphocytes # (auto) 1.7 10 ^3/uL (0.4-5.4); Lymphocytes % (auto) 17.5 % (10.0-50.0); Mean Corpuscular Hgb Conc. 34.3 g/dL (32.0-36.0); Mean Corpuscular Volume 87.4 fL (80.0-100.0); Monocytes # (auto) 0.8 10 ^3/uL (0-1.3); Monocytes % (auto) 8.6 % (0.0-12.0); Neutrophils # (auto) 7.1 10 ^3/uL (1.6-8.6); Neutrophils % (auto) 73.4 % (37.0-80.0); Nucleated Red Blood Cells % 0.2 %; Platelet Count (auto) 129 10^3/uL (140-450); Red Blood Cells 3.07 10^6/uL (4.0-5.20); Red Cell Distribution Width 13.6 % (11.8-14.3); White Blood Cell 9.7 10^3/uL (4.4-10.8)
[2025-01-08 06:15] LABS: Anion Gap 7 (5-15); Carbon Dioxide 27 mmol/L (20-31); Potassium 3.8 mmol/L (3.5-5.1); Sodium 143 mmol/L (136-145)
[2025-01-08 06:20] LABS: BUN/Creatinine Ratio 9.5 (10.0-20.0); Glucose 86 mg/dL (74-106)
[2025-01-08 06:29] LABS: Blood Urea Nitrogen 6 mg/dL (9-23); Calcium 8.5 mg/dL (8.7-10.4); Chloride 109 mmol/L (98-107)
[2025-01-08 09:00] VITALS: BP 109/59; PULSE 101; RESP 15; TEMP 97.7; O2SAT 93
--- NOTE | 2025-01-08 09:47 | DVHPN2 ---
Subjective Progress Notes Subjective LAVH POD#2 S: Mild to moderate pain, controlled with meds. + Flatus . NO BM yet Tolerating PO fluids and some solid foods without N/V. Feels "much better" and "wants to go home" Ambulating, voiding well. Denies SOB, chest pain or dizziness. Denies palpitations Denies vaginal bleeding Objective PHYSICAL EXAM Physical Exam: Alert, NAD, appears pale Abd Soft, non distended, appropriately tender, no masses Ext Soft, Neg [place] sign Vital Signs and I&O Vital Signs Date Time Temp Pulse Resp B/P (MAP) Pulse Ox O2 Delivery O2 Flow Rate FiO2 01/08/25 09:00 97.7 101 15 109/59 (76) 93 97.7 01/07/25 20:00 Room Air* 0 21 Intake and Output 01/08/25 07:00 Intake Total 4100 ml Output Total 2500 ml Balance 1600 ml Intake Oral 1400 ml IV Total 2700 ml Output Urine Total 2500 ml # Voids 3 Lab results Laboratory Tests Test 01/04/25 11:36 01/06/25 16:30 01/06/25 19:40 01/07/25 05:34 Range/Units White Blood Count 7.1 14.5 #H 15.5 H 19.9 #H 4.4-10.8 10^3/uL Red Blood Count 4.11 3.87 L 3.80 L 3.30 L 4.0-5.20 10^6/uL Hemoglobin 12.3 11.5 L 11.4 L 10.0 L 12.2-16.2 g/dL Hematocrit 35.6 L 33.4 L 32.7 L 28.5 #L 36.0-46.0 % Mean Corpuscular Volume 86.5 86.2 86.1 86.3 80.0-100.0 fL Mean Corpuscular Hemoglobin 30.0 29.7 30.0 30.4 28.0-32.0 pg Mean Corpuscular Hemoglobin Concent 34.7 34.5 34.8 35.2 32.0-36.0 g/dL Red Cell Distribution Width 13.2 12.9 13.3 13.4 11.8-14.3 % Platelet Count 184 157 163 159 140-450 10^3/uL Mean Platelet Volume 8.6 8.7 8.7 9.1 6.9-10.8 fL Neutrophils (%) (Auto) 68.9 94.9 H 94.7 H 83.7 H 37.0-80.0 % Lymphocytes (%) (Auto) 22.5 3.0 L 3.0 L 6.9 L 10.0-50.0 % Monocytes (%) (Auto) 7.2 2.0 2.3 9.4 0.0-12.0 % Eosinophils (%) (Auto) 0.9 0.0 0.0 0.0 0.0-7.0 % Basophils (%) (Auto) 0.5 0.1 0.0 0.0 0.0-2.0 % Neutrophils # (Auto) 4.9 13.8 H 14.6 H 16.6 H 1.6-8.6 10 ^3/uL Lymphocytes # (Auto) 1.6 0.4 0.5 1.4 0.4-5.4 10 ^3/uL Monocytes # (Auto) 0.5 0.3 0.4 1.9 H 0-1.3 10 ^3/uL Eosinophils # (Auto) 0.1 0 0 0 0-0.8 10 ^3/uL Basophils # (Auto) 0 0 0 0 0-0.2 10 ^3/uL Nucleated Red Blood Cells 0.0 0.0 0.0 0.0 % Prothrombin Time 11.1 9.3-11.8 sec Prothrombin Time INR 1.05 0.9-1.15 Activated Partial Thromboplast Time 26.8 24.5-34.5 SEC Urine Color Yellow Yellow Urine Clarity Turbid H Clear Urine pH 6.0 5.0-9.0 Urine Specific [place] 1.029 1.001-1.035 Urine Protein Trace H Negative Urine Ketones 1+ H Negative Urine Blood Negative Negative /uL Urine Nitrite Negative Negative Urine Bilirubin Negative Negative Urine Urobilinogen Normal Negative mg/dL Urine Leukocyte Esterase 2+ Negative /uL Urine RBC 2 0 - 4 /hpf Urine Microscopic WBC 4 0-5 /HPF Urine Squamous Epithelial Cells Mod <5 /hpf Urine Bacteria Mod H None Seen /hpf Urine Mucus Few None Seen Urine Glucose Normal Normal mg/dL Urine Test Negative Negative Sodium Level 140 141 136-145 mmol/L Potassium Level 3.9 4.0 3.5-5.1 mmol/L Chloride Level 108 H 109 H 98-107 mmol/L Carbon Dioxide Level 27 26 20-31 mmol/L Anion Gap 5 6 5-15 Blood Urea Nitrogen 13 8 L 9-23 mg/dL Creatinine 0.88 0.70 0.550-1.02 mg/dL Glomerular Filtration Rate Calc 82 107 >90 mL/min BUN/Creatinine Ratio 14.8 11.4 10.0-20.0 Serum Glucose 108 H 97 74-106 mg/dL Calcium Level 9.6 9.2 8.7-10.4 mg/dL Total Bilirubin 0.7 0.5 0.2-1.0 mg/dL Aspartate Amino Transferase (AST) 12 L 11 L 13-40 U/L Alanine Aminotransferase (ALT) 16 10 7-40 U/L Alkaline Phosphatase 52 42 L 46-116 U/L Total Protein 7.0 5.5 L 5.7-8.2 g/dL Albumin 4.3 3.3 3.2-4.8 g/dL Beta HCG, Quantitative 1.1 L 1.5-4.2 mIU/mL Test 01/08/25 00:15 01/08/25 05:22 Range/Units Urine Color Light-orange Yellow Urine Clarity Turbid H Clear Urine pH 6.0 5.0-9.0 Urine Specific [place] 1.020 1.001-1.035 Urine Protein 1+ H Negative Urine Ketones 1+ H Negative Urine Blood 3+ H Negative /uL Urine Nitrite Negative Negative Urine Bilirubin Negative Negative Urine Urobilinogen Normal Negative mg/dL Urine Leukocyte Esterase 3+ Negative /uL Urine RBC 499 0 - 4 /hpf Urine Microscopic WBC 41 H 0-5 /HPF Urine Squamous Epithelial Cells Few <5 /hpf Urine Bacteria Few H None Seen /hpf Urine Hyaline Casts Few 0 - 2 /lpf Urine Mucus Few None Seen Urine Glucose Normal Normal mg/dL White Blood Count 9.7 # 4.4-10.8 10^3/uL Red Blood Count 3.07 L 4.0-5.20 10^6/uL Hemoglobin 9.2 L 12.2-16.2 g/dL Hematocrit 26.8 L 36.0-46.0 % Mean Corpuscular Volume 87.4 80.0-100.0 fL Mean Corpuscular Hemoglobin 30.0 28.0-32.0 pg Mean Corpuscular Hemoglobin Concent 34.3 32.0-36.0 g/dL Red Cell Distribution Width 13.6 11.8-14.3 % Platelet Count 129 L 140-450 10^3/uL Mean Platelet Volume 8.9 6.9-10.8 fL Neutrophils (%) (Auto) 73.4 37.0-80.0 % Lymphocytes (%) (Auto) 17.5 10.0-50.0 % Monocytes (%) (Auto) 8.6 0.0-12.0 % Eosinophils (%) (Auto) 0.3 0.0-7.0 % Basophils (%) (Auto) 0.2 0.0-2.0 % Neutrophils # (Auto) 7.1 1.6-8.6 10 ^3/uL Lymphocytes # (Auto) 1.7 0.4-5.4 10 ^3/uL Monocytes # (Auto) 0.8 0-1.3 10 ^3/uL Eosinophils # (Auto) 0 0-0.8 10 ^3/uL Basophils # (Auto) 0 0-0.2 10 ^3/uL Nucleated Red Blood Cells 0.2 % Sodium Level 143 136-145 mmol/L Potassium Level 3.8 3.5-5.1 mmol/L Chloride Level 109 H 98-107 mmol/L Carbon Dioxide Level 27 20-31 mmol/L Anion Gap 7 5-15 Blood Urea Nitrogen 6 L 9-23 mg/dL Creatinine 0.63 0.550-1.02 mg/dL Glomerular Filtration Rate Calc 110 >90 mL/min BUN/Creatinine Ratio 9.5 L 10.0-20.0 Serum Glucose 86 74-106 mg/dL Calcium Level 8.5 L 8.7-10.4 mg/dL Assessment and Plan ASSESSMENT AND PLAN Assessment and Plan 1. POD#2 s/p LAVH 2. Precipitous drop in H/H due to acute blood loss (surgery) and hemodilution, rule out post op hematoma 3. Possible complicated UTI Plan: 1. STAT CT ABD/Pelvis w/ IV contrast r/o post op hematoma, Repeat H/H in 6 hours 2. Continue IV antibiotics 3. Discharge planning depending on test results today. My orders: Orders - ANANDA JAMES DO Admit (01/06/25 14:03) To Pacu For Recovery (01/06/25 14:03) Ondansetron Hcl (Zofran) (3/21/25 14:15) Hydromorphone Injection (Dilaudid Inject (01/06/25 14:15) Sequential Compression Device (01/06/25 14:03) Oxygen By Nasal Cannula (01/06/25 14:03) D/C Beltran (01/06/25 14:03) Incentive Spirometry (01/06/25 14:03) Ibuprofen Tablet (Motrin Tablet) (01/06/25 14:15) Clear Liq Diet (01/06/25 Dinner) Abdominal Binder (01/06/25 14:03) Remove All Anal Packing (01/07/25 04:00) * Hospitalist Consult (01/06/25 ) Ambulate X 4 Daily On Pod #1 (01/07/25 08:18) Regular Diet (01/07/25 Breakfast) Hydrocodone-Acet 7.5/325mg Tab ([place] 7. (01/07/25 08:30) [place]ock Iv (01/07/25 ) Ct Ab Pel With Iv Con Only (01/08/25 10:02) Plan discussed with: Patient Visit Coding OBGYN Date of Service: Jan 08, 2025 Billing Provider: ANANDA JAMES DO [employer] Common Visit Codes: [id number] INP/OBS CARE(HIGH) ANANDA JAMES DO Jan 08, 2025 09:47
[2025-01-08] MEDS: IOHEXOL 350 MG/ML 100ML IJ ONE (10:53)
--- NOTE | 2025-01-08 11:21 | DVH ---
CT CT AB PEL WITH IV CON ONLY INDICATION: r/o post op hematoma, drop in H/H EXAM DATE: 01/08/2025 10:22 AM COMPARISON: None RADIATION DOSE: CTDIvol: 15.17 mGy, DLP: 915.81 mGy*cm PROCEDURE: Helical CT images were obtained of the abdomen and pelvis with IV contrast Sagittal and co loree reconstructions are provided. ORAL CONTRAST: None. ADDITIONAL IMAGES / REFORMATS: None All CT s cans at this medical facility are performed using dose modulation techniques as appropriate to a perf ormed exam including the following: Automated exposure control was utilized; adjustment of the MA and /or KV according to patient size; and use of iterative reconstruction technique. FINDINGS: LUNG BASE: Bibasilar atenectasis. LIVER: Normal. GALLBLADDER AND BILIARY TREE: No calcified gallstones. Normal caliber wall. No intra- or extrahepatic biliary ductal dilation. PANCREAS: Normal. SPLEEN: Normal. BOWEL: Normal. ADRENALS: Normal. KIDNEYS AND URETER: Normal. BLADDER: Gas in the bladder likely from recent instrumentation. REPRODUCTIVE ORGANS: Post surgical changes from recent hysterectomy LYMPH NODES:No lymphadenopathy. PERITONEUM: Pneumoperitoneum and trace pelvic fluid. No focal fluid collection VESSELS: Scattered atherosclerotic calcifications are noted. RETROPERITONEUM: Normal. ABDOMINAL WALL: Normal. BONES: Scattered osseous degenerative changes are noted. IMPRESSION: Post surgical changes from recent hysterectomy with pneumoperitoneum and trace pelvic fluid. However no focal fluid collection is seen to suggest for hematoma or abscess.
--- NOTE | 2025-01-08 11:31 | DVHPN2 ---
Subjective Feeling better this morning with decreasing pelvic pain Reviewed: Care Plan, H&P, Labs, Medications, Previous Orders, Radiology, Other (Consultation) Changes from previous H/P or p: Changes Objective Vitals Vital Signs Date Time Temp Pulse Resp B/P (MAP) Pulse Ox O2 Delivery O2 Flow Rate FiO2 01/08/25 09:00 97.7 101 15 109/59 (76) 93 97.7 01/08/25 08:00 Room Air* 0 21 Intake/Output Intake and Output 01/08/25 07:00 Intake Total 4100 ml Output Total 2500 ml Balance 1600 ml Intake Oral 1400 ml IV Total 2700 ml Output Urine Total 2500 ml # Voids 3 General Appearance: Alert, Oriented X3, Cooperative, No acute distress HEENT: Atraumatic Lungs: Clear to auscultation, Normal air movement Cardiovascular: Regular rate, Normal S1, Normal S2, No murmurs Abdomen: Normal bowel sounds, Soft, Other (Suprapubic tenderness) Genitourinary: Other (Beltran's in place) Neuro: Normal speech, Cranial nerves 3-12 NL Psych/Mental Status: Mental status NL, Mood NL Medications Current Medications Medications Dose Ordered Sig/Carlene Route Start Time Stop Time Status Last Admin Dose Admin Ondansetron HCl 4 mg Q4HP PRN IV 01/06/25 14:15 Hydromorphone HCl 1 mg Q2HP PRN IV 01/06/25 14:15 01/07/25 04:29 1 MG Ibuprofen 800 mg Q8HP PRN PO 01/06/25 14:15 01/08/25 05:33 800 MG Acetaminophen/ Hydrocodone Bitart 1 tab Q6HP PRN PO 01/07/25 08:30 Lactated Ringer's 1,000 ml @ 125 mls/hr Q8H IV 01/07/25 11:00 01/08/25 11:00 125 MLS/HR Ceftriaxone Sodium 50 ml @ 100 mls/hr DAILY@09 IV 01/07/25 09:00 01/08/25 08:23 100 MLS/HR Dimethicone 120 mg QID PO 01/07/25 12:00 01/08/25 05:33 120 MG Laboratory Results Laboratory Tests 01/08/25 05:22 Chemistry Test 01/08/25 05:22 Calcium Level 8.5 mg/dL (8.7-10.4) L Urinalysis Test 01/04/25 11:36 01/08/25 00:15 Urine Test Negative (Negative) Urine Color Light-orange (Yellow) Urine Clarity Turbid (Clear) H Urine pH 6.0 (5.0-9.0) Urine Specific [place] 1.020 (1.001-1.035) Urine Protein 1+ (Negative) H Urine Ketones 1+ (Negative) H Urine Blood 3+ /uL (Negative) H Urine Nitrite Negative (Negative) Urine Bilirubin Negative (Negative) Urine Urobilinogen Normal mg/dL (Negative) Urine Leukocyte Esterase 3+ /uL (Negative) Urine RBC 499 /hpf (0 - 4) Urine Microscopic WBC 41 /HPF (0-5) H Urine Squamous Epithelial Cells Few /hpf (<5) Urine Bacteria Few /hpf (None Seen) H Urine Hyaline Casts Few /lpf (0 - 2) Urine Mucus Few (None Seen) Urine Glucose Normal mg/dL (Normal) Labs and/or images reviewed: Labs reviewed by me, Image(s) reviewed by me Assessment/Plan Assessment/Plan A 49-year-old female patient; with past medical history of menorrhagia and pelvic pain; who was admitted after laparoscopic assisted vaginal hysterectomy (LAVH), bilateral salpingectomy (BS), and cystoscopy on January 06, 2025 for pain management and treatment of complicated UTI. #Fluid-responsive septic shock with leukocytosis and hypotension due to complicated UTI; received IV boluses; continue IV antibiotics and IV fluids; urine cultures pending; leukocytosis resolved and hypotension resolved; continue monitoring #EVELIN in the setting of septic shock; most likely vasomotor nephropathy; continue IV fluids; avoid nephrotoxic agents; continue monitoring #Menorrhagia and pelvic pain s/p LAVH, BS, and cystoscopy on January 06, 2025; continue pain management as indicated; continue simethicone for building up of of gas; gynecology is following; continue monitoring #Acute blood loss anemia; dropping hemoglobin; abdomen/pelvis CT without contrast ordered by personnel scheduler that showed no active bleeding/hematoma; closely monitor H&H/CBC; continue monitoring #Obesity; counseled on the importance of adopting healthy lifestyle with diet and exercise in order to lose weight; continue monitoring Late Entry. This medical document was created using an electronic medical record system with computerized dictation system. Although this document has been carefully reviewed, there might still be some phonetic and typographical errors. These areas are purely typographical due to imperfections of the software programs, and do not reflect any compromise in the patient's medical care. Plan discussed with: Patient, Other (Nurse) My Orders Orders - SARAH KELLER MD Procedure Category Date Status Time Complete Blood Count LAB 01/09/25 Verified 05:00 Complete Blood Count LAB 01/10/25 Verified 05:00 Complete Blood Count LAB 01/11/25 Verified 05:00 Complete Blood Count LAB 01/12/25 Verified 05:00 Comprehensive LAB 01/09/25 Verified Metabolic Panel 04:00 Code Status CODE 01/07/25 Transmitted 17:27 Date of Service: Jan 08, 2025 Billing Provider: SARAH KELLER MD Common Visit Codes: [id number] INP/OBS CARE(HIGH) SARAH KELLER MD Jan 08, 2025 11:31
[2025-01-08] MEDS ORDERED: SIMETHICONE 80 MG CHEWABLE TABLET PO PRN (12:30)
[2025-01-08] MEDS ORDERED: FER325T PO (12:45)
[2025-01-08] MEDS ORDERED: DOCU-94 PO (12:45)
[2025-01-08 13:00] VITALS: BP 105/70; PULSE 95; RESP 16; TEMP 99.1; O2SAT 96
[2025-01-08 15:01] LABS: Hematocrit 26.9 % (36.0-46.0); Hemoglobin 9.1 g/dL (12.2-16.2)
[2025-01-08] MEDS ORDERED: METR-344 PO (15:36)
[2025-01-08] MEDS ORDERED: LEVO500T91 PO (15:36)
--- NOTE | 2025-01-08 15:43 | DVHDS2 ---
Discharge Summary Date of Admission Jan 06, 2025 at 14:03 Date of Discharge: Jan 08, 2025 Admitting Diagnosis Menorrhagia, s/p LAVH BS Cystoscopy Labs/Diagnostic Data: Laboratory Results Test 01/08/25 14:42 01/08/25 05:22 01/08/25 00:15 01/07/25 05:34 Hemoglobin 9.1 g/dL (12.2-16.2) Hematocrit 26.9 % (36.0-46.0) White Blood Count 9.7 10^3/uL (4.4-10.8) Red Blood Count 3.07 10^6/uL (4.0-5.20) Mean Corpuscular Volume 87.4 fL (80.0-100.0) Mean Corpuscular Hemoglobin 30.0 pg (28.0-32.0) Mean Corpuscular Hemoglobin Concent 34.3 g/dL (32.0-36.0) Red Cell Distribution Width 13.6 % (11.8-14.3) Platelet Count 129 10^3/uL (140-450) Mean Platelet Volume 8.9 fL (6.9-10.8) Neutrophils (%) (Auto) 73.4 % (37.0-80.0) Lymphocytes (%) (Auto) 17.5 % (10.0-50.0) Monocytes (%) (Auto) 8.6 % (0.0-12.0) Eosinophils (%) (Auto) 0.3 % (0.0-7.0) Basophils (%) (Auto) 0.2 % (0.0-2.0) Neutrophils # (Auto) 7.1 10 ^3/uL (1.6-8.6) Lymphocytes # (Auto) 1.7 10 ^3/uL (0.4-5.4) Monocytes # (Auto) 0.8 10 ^3/uL (0-1.3) Eosinophils # (Auto) 0 10 ^3/uL (0-0.8) Basophils # (Auto) 0 10 ^3/uL (0-0.2) Nucleated Red Blood Cells 0.2 % Sodium Level 143 mmol/L (136-145) Potassium Level 3.8 mmol/L (3.5-5.1) Chloride Level 109 mmol/L (98-107) Carbon Dioxide Level 27 mmol/L (20-31) Anion Gap 7 (5-15) Blood Urea Nitrogen 6 mg/dL (9-23) Creatinine 0.63 mg/dL (0.550-1.02) Glomerular Filtration Rate Calc 110 mL/min (>90) BUN/Creatinine Ratio 9.5 (10.0-20.0) Serum Glucose 86 mg/dL (74-106) Calcium Level 8.5 mg/dL (8.7-10.4) Urine Color Light-orange (Yellow) Urine Clarity Turbid (Clear) Urine pH 6.0 (5.0-9.0) Urine Specific [place] 1.020 (1.001-1.035) Urine Protein 1+ (Negative) Urine Ketones 1+ (Negative) Urine Blood 3+ /uL (Negative) Urine Nitrite Negative (Negative) Urine Bilirubin Negative (Negative) Urine Urobilinogen Normal mg/dL (Negative) Urine Leukocyte Esterase 3+ /uL (Negative) Urine RBC 499 /hpf (0 - 4) Urine Microscopic WBC 41 /HPF (0-5) Urine Squamous Epithelial Cells Few /hpf (<5) Urine Bacteria Few /hpf (None Seen) Urine Hyaline Casts Few /lpf (0 - 2) Urine Mucus Few (None Seen) Urine Glucose Normal mg/dL (Normal) Total Bilirubin 0.5 mg/dL (0.2-1.0) Aspartate Amino Transferase (AST) 11 U/L (13-40) Alanine Aminotransferase (ALT) 10 U/L (7-40) Alkaline Phosphatase 42 U/L (46-116) Total Protein 5.5 g/dL (5.7-8.2) Albumin 3.3 g/dL (3.2-4.8) Test 01/04/25 11:36 Prothrombin Time 11.1 sec (9.3-11.8) Prothrombin Time INR 1.05 (0.9-1.15) Activated Partial Thromboplast Time 26.8 SEC (24.5-34.5) Urine Test Negative (Negative) Beta HCG, Quantitative 1.1 mIU/mL (1.5-4.2) Other Laboratory Tests 01/08/25 14:42 01/08/25 05:22 Brief Hx & Hospital Course: Patient admitted for vNOTES vaginal hysterectomy Posterior cul de sac was obliterated by endometriosis and adhesions, impossible to perform posterior colpotomy for vaginal hysterectomy. Surgery converted to LAVH and BS, Cystoscopy Post operative complicated of hypotension and precipitous drop in H/H due to acute blood loss Hb stable at 9.1. Patient asymptomatic. CT scan post op negative for intrabd bleeding or hematoma Internal med consult started patient on Rocephin for complicated UTI Patient doing well on POD#2 and desires to go home. Operations or Procedures 1. Laparoscopic assisted vaginal hysterectomy with bilateral salpingectomy (LAVH/BS) and Cystoscopy Condition at Discharge: Stable Final Diagnosis/Problems List s/p LAVH BS for menorrhagia, adenomyosis, AUB Acute complicated Cystitis Secondary Diagnosis: Precipitous drop in H/H due to blood loss (surgery) Discharge Disposition: Home Discharge Instruct/Medications Diet: Regular Activity: Light activity Activity comment: Pelvic rest x 6 wk, no sex Follow Up/Referral: 1 week [facility] Medications: see eRX Discharge Statement: "Patient was advised to return to the ER or call 911 if any headaches, dizziness, shortness of breath, chest pain, abdominal pain, bleeding, fevers, or worsening of medical condition. Patient was counseled about treatment plan, medications, possible side effects, patientverbalized understanding. All questions were answered to the best of my ability. This discharge took greater then 30 minutes in planning, reviewing documentation, counseling the patient, and discussing with other team members." ASSESSMENT ASSESSMENT Assessment s/p LAVH BS for menorrhagia, adenomyosis, AUB Acute complicated Cystitis Visit Coding OBGYN Date of Service: Jan 08, 2025 Billing Provider: ANANDA JAMES DO [employer] [facility] Common Visit Codes: [id number] DISCH DAY >30MIN ANANDA JAMES DO Jan 08, 2025 15:42
[2025-01-08 17:00] VITALS: BP 108/60; PULSE 83; RESP 16; TEMP 98.3; O2SAT 96
[2025-01-08 17:14] VITALS: BP 105/70; PULSE 95; RESP 16; TEMP 99.1; O2SAT 96
== END 2025-01-08 18:17 | disposition home or self-care (01) | DRG 853 ==
LOC: SUR 07:42 → OVERFLOW 14:03 → EEVIPCON 14:03 → WEST WING 16:02
PROVIDERS: ADMIT Internal Medicine; ATTEND Internal Medicine
PROC: 0UB77ZZ Excision of Bilateral Fallopian Tubes, Via Natural or Artificial Opening (ICD-10-PCS; 2025-01-06)
PROC: 0TJB8ZZ Inspection of Bladder, Via Natural or Artificial Opening Endoscopic (ICD-10-PCS; 2025-01-06)
PROC: 0UT9FZZ Resection of Uterus, Via Natural or Artificial Opening With Percutaneous Endoscopic Assistance (ICD-10-PCS; principal; 2025-01-06 10:19)
DX: A41.9 Sepsis, unspecified organism (principal); R65.21 Severe sepsis with septic shock; D62 Acute posthemorrhagic anemia; N30.00 Acute cystitis without hematuria; E66.9 Obesity, unspecified; N92.0 Excessive and frequent menstruation with regular cycle; N80.399 Endometriosis of the pelvic peritoneum, other specified sites, unspecified depth; Z79.899 Other long term (current) drug therapy; Z68.29 Body mass index [BMI] 29.0-29.9, adult
CPT/HCPCS: 36415; 74177; 80048; 80053; 81001; 81025; 84702; 85014; 85018; 85025; 85610; 85730; 86850; 86900; 86901; 87086; 87088; 87186; G0378; J0131; J1100; J2405; J2704; J3490

== ENCOUNTER → 2025-01-16 | Outpatient (CLI) | payer BC ==
[~2025-01-16] MED LIST changes: +DOCU-94 PO; +FER325T PO; +HYDR-4902 PO; +IBUP-1455 PO; +LEVO500T91 PO; +METR-344 PO
[2025-01-16 10:28] LABS: Basophils # (auto) 0 10 ^3/uL (0-0.2); Basophils % (auto) 0.7 % (0.0-2.0); Eosinophils # (auto) 0.3 10 ^3/uL (0-0.8); Eosinophils % (auto) 4.1 % (0.0-7.0); Hematocrit 31.1 % (36.0-46.0); Hemoglobin 10.5 g/dL (12.2-16.2); Lymphocytes # (auto) 1.5 10 ^3/uL (0.4-5.4); Mean Corpuscular Hemoglobin 29.4 pg (28.0-32.0); Mean Corpuscular Hgb Conc. 33.7 g/dL (32.0-36.0); Mean Corpuscular Volume 87.4 fL (80.0-100.0); Monocytes # (auto) 0.7 10 ^3/uL (0-1.3); Monocytes % (auto) 9.9 % (0.0-12.0); Neutrophils # (auto) 4.2 10 ^3/uL (1.6-8.6); Neutrophils % (auto) 63.3 % (37.0-80.0); Platelet Count (auto) 244 10^3/uL (140-450); Red Blood Cells 3.56 10^6/uL (4.0-5.20); Red Cell Distribution Width 13.5 % (11.8-14.3); White Blood Cell 6.7 10^3/uL (4.4-10.8)
== END | disposition home or self-care (01) ==
LOC: LAB 10:16
PROVIDERS: ATTEND Nurse Practitioner Family
DX: D53.9 Nutritional anemia, unspecified (principal)
CPT/HCPCS: 36415; 85025

== ENCOUNTER → 2025-02-06 | Outpatient (CLI) | payer BC ==
[2025-02-06 11:02] LABS: Basophils # (auto) 0 10 ^3/uL (0-0.2); Basophils % (auto) 0.5 % (0.0-2.0); Eosinophils # (auto) 0.3 10 ^3/uL (0-0.8); Eosinophils % (auto) 4.9 % (0.0-7.0); Hematocrit 35.8 % (36.0-46.0); Hemoglobin 11.9 g/dL (12.2-16.2); Lymphocytes # (auto) 1.3 10 ^3/uL (0.4-5.4); Lymphocytes % (auto) 24.6 % (10.0-50.0); Mean Corpuscular Hemoglobin 29.7 pg (28.0-32.0); Mean Corpuscular Hgb Conc. 33.4 g/dL (32.0-36.0); Mean Corpuscular Volume 89.1 fL (80.0-100.0); Monocytes # (auto) 0.5 10 ^3/uL (0-1.3); Monocytes % (auto) 8.8 % (0.0-12.0); Neutrophils # (auto) 3.3 10 ^3/uL (1.6-8.6); Neutrophils % (auto) 61.2 % (37.0-80.0); Nucleated Red Blood Cells % 0.1 %; Platelet Count (auto) 145 10^3/uL (140-450); Red Blood Cells 4.01 10^6/uL (4.0-5.20); White Blood Cell 5.5 10^3/uL (4.4-10.8)
[2025-02-06 11:33] LABS: % Iron Saturation 40.1 % (15-50)
== END | disposition home or self-care (01) ==
LOC: LAB 10:32
PROVIDERS: ATTEND Nurse Practitioner Family
DX: D50.9 Iron deficiency anemia, unspecified (principal)
CPT/HCPCS: 36415; 83540; 83550; 85025

== ENCOUNTER 2025-03-27 15:35 | Outpatient (CLI) | payer BC | END 2025-03-27 17:00 | disposition home or self-care (01) | LOC: LAB 15:35 | PROVIDERS: ATTEND Nurse Practitioner Family | DX: N39.0 Urinary tract infection, site not specified (principal) | CPT/HCPCS: 87086 ==